=== PATIENT | female | born 1960 | race Caucasian/White ===

== ENCOUNTER → 2018-03-22 | Outpatient (CLI) | payer BC | LOC: MAMMO 08:25 | DX: Z12.39 Encounter for other screening for malignant neoplasm of breast (principal) ==

== ENCOUNTER → 2018-03-30 | Outpatient (CLI) | payer BC | LOC: LAB 01:00 | DX: N89.8 Other specified noninflammatory disorders of vagina (principal); J45.20 Mild intermittent asthma, uncomplicated; E61.1 Iron deficiency; K90.89 Other intestinal malabsorption; J30.1 Allergic rhinitis due to pollen ==

== ENCOUNTER → 2019-04-17 | Outpatient (CLI) | payer BC ==
[2019-04-17 09:11] LABS: EOS # 0.3 (0.04-0.40); EOS % 7.1 % (1.0-5.0); HEMOGLOBIN 10.5 g/dL (12.5-16.0); LYMPH# 1.2 (1.50-4.00); MEAN CELL VOLUME 72 fl (78-100); MEAN PLATELET VOLUME 9.3 fl (7.4-10.4); MONO # 0.4 (0.20-0.80); NEU # 1.7 (1.40-6.50); PLATELET COUNT 309 K/mm3 (130-400); RED BLOOD COUNT 5.17 M/mm3 (4.10-5.30); RED CELL DISTRIBUTION WIDTH 16.6 % (11.5-14.5); WHITE BLOOD COUNT 3.5 K/mm3 (4.8-10.8)
[2019-04-17 09:13] LABS: MEAN CORPUSCULAR HEMOGLOBIN 20 pg (27-31); MEAN CORPUSCULAR HGB CONC 28 g/dL (33-37)
[2019-04-17 09:20] LABS: ALBUMIN 4.1 g/dL (3.5-5.0); POTASSIUM 4.1 mmol/L (3.5-5.1)
[2019-04-17 09:22] LABS: CALCIUM 9.1 mg/dL (8.3-10.5)
[2019-04-17 09:23] LABS: TOTAL PROTEIN 6.5 g/dL (6.4-8.3)
[2019-04-17 09:25] LABS: TOTAL BILIRUBIN 0.4 mg/dL (0.2-1.2)
[2019-04-17 10:16] LABS: ERYTHROCYTE SEDIMENTATION RATE 6 mm/hr (0-30)
== END ==
LOC: LAB 08:34
PROVIDERS: Internal Medicine
DX: Z00.00 Encounter for general adult medical examination without abnormal findings (principal); Z12.11 Encounter for screening for malignant neoplasm of colon

== ENCOUNTER → 2019-04-22 | Outpatient (CLI) | payer BC | LOC: LAB 14:04 | DX: Z00.00 Encounter for general adult medical examination without abnormal findings (principal); Z12.11 Encounter for screening for malignant neoplasm of colon ==

== ENCOUNTER → 2019-08-13 | Outpatient (CLI) | payer BC ==
[2019-08-13 12:12] LABS: EOS # 0.2 (0.04-0.40); EOS % 3.6 % (1.0-5.0); HEMATOCRIT 41.4 % (37.0-47.0); HEMOGLOBIN 12.1 g/dL (12.5-16.0); LYMPH# 1.3 (1.50-4.00); MEAN CELL VOLUME 73 fl (78-100); MEAN PLATELET VOLUME 9.4 fl (7.4-10.4); MONO # 0.5 (0.20-0.80); NEU # 2.8 (1.40-6.50); PLATELET COUNT 337 K/mm3 (130-400); RED BLOOD COUNT 5.68 M/mm3 (4.10-5.30); WHITE BLOOD COUNT 4.8 K/mm3 (4.8-10.8)
[2019-08-13 12:13] LABS: MEAN CORPUSCULAR HEMOGLOBIN 21 pg (27-31); MEAN CORPUSCULAR HGB CONC 29 g/dL (33-37)
[2019-08-13 12:23] LABS: ALBUMIN 4.2 g/dL (3.5-5.0); POTASSIUM 4.1 mmol/L (3.5-5.1)
[2019-08-13 12:24] LABS: CALCIUM 8.8 mg/dL (8.3-10.5)
[2019-08-13 12:26] LABS: TOTAL PROTEIN 7.5 g/dL (6.4-8.3)
[2019-08-13 12:28] LABS: TOTAL BILIRUBIN 0.4 mg/dL (0.2-1.2)
[2019-08-13 13:09] LABS: ERYTHROCYTE SEDIMENTATION RATE 4 mm/hr (0-30)
== END ==
LOC: LAB 11:51
PROVIDERS: Internal Medicine
DX: Z00.00 Encounter for general adult medical examination without abnormal findings (principal); E61.1 Iron deficiency; K90.9 Intestinal malabsorption, unspecified; M85.80 Other specified disorders of bone density and structure, unspecified site

== ENCOUNTER → 2019-08-22 | Outpatient (CLI) | payer BC | LOC: MAMMO 08:22 | DX: Z12.31 Encounter for screening mammogram for malignant neoplasm of breast (principal); Z00.00 Encounter for general adult medical examination without abnormal findings; M85.80 Other specified disorders of bone density and structure, unspecified site ==

== ENCOUNTER → 2019-10-31 | Day surgery (SDC) | payer BC | LOC: MSO 07:19 | DX: Z12.11 Encounter for screening for malignant neoplasm of colon (principal); D12.8 Benign neoplasm of rectum; I10 Essential (primary) hypertension; D50.9 Iron deficiency anemia, unspecified; J45.909 Unspecified asthma, uncomplicated; Z86.010 Personal history of colon polyps; Z90.710 Acquired absence of both cervix and uterus; Z79.82 Long term (current) use of aspirin | CPT/HCPCS: 00811; J2704; J7120 ==

== ENCOUNTER → 2020-09-03 | Outpatient (CLI) | payer BC ==
[2020-09-03 09:23] LABS: BASO # 0.03 (0.02-0.10); EOS # 0.16 (0.04-0.40); EOS % 4.6 % (1.0-5.0); HEMATOCRIT 48.5 % (37.0-47.0); HEMOGLOBIN 15.7 g/dL (12.5-16.0); LYMPH# 1.09 (1.50-4.00); MEAN CELL VOLUME 86 fl (78-100); MEAN CORPUSCULAR HEMOGLOBIN 28 pg (27-31); MEAN CORPUSCULAR HGB CONC 32 g/dL (33-37); MEAN PLATELET VOLUME 9.3 fl (7.4-10.4); MONO # 0.35 (0.20-0.80); NEU # 1.85 (1.40-6.50); PLATELET COUNT 248 K/mm3 (130-400); RED BLOOD COUNT 5.67 M/mm3 (4.10-5.30); RED CELL DISTRIBUTION WIDTH 13.2 % (11.5-14.5); WHITE BLOOD COUNT 3.5 K/mm3 (4.8-10.8)
[2020-09-03 09:24] LABS: ALBUMIN 4.1 g/dL (3.4-4.8); POTASSIUM 3.8 mmol/L (3.5-5.1)
[2020-09-03 09:26] LABS: CALCIUM 9.2 mg/dL (8.3-10.5)
[2020-09-03 09:27] LABS: TOTAL PROTEIN 7.3 g/dL (6.2-8.1)
[2020-09-03 09:29] LABS: TOTAL BILIRUBIN 0.7 mg/dL (0.2-1.2)
[2020-09-03 11:10] LABS: ERYTHROCYTE SEDIMENTATION RATE 0 mm/hr (0-30)
== END ==
LOC: LAB 08:48
PROVIDERS: Internal Medicine
DX: Z00.00 Encounter for general adult medical examination without abnormal findings (principal); Z12.11 Encounter for screening for malignant neoplasm of colon

== ENCOUNTER → 2020-09-29 | Outpatient (CLI) | payer BC | LOC: MAMMO 08:30 | DX: Z12.31 Encounter for screening mammogram for malignant neoplasm of breast (principal) ==

== ENCOUNTER → 2021-09-27 | Outpatient (CLI) | payer BC ==
[2021-09-27 07:05] LABS: BASO # 0.02 K/mm3 (0.02-0.10); EOS # 0.22 K/mm3 (0.04-0.40); EOS % 5.9 % (1.0-5.0); HEMATOCRIT 42.5 % (37.0-47.0); HEMOGLOBIN 13.8 g/dL (12.5-16.0); LYMPH# 1.29 K/mm3 (1.50-4.00); MEAN CELL VOLUME 86 fl (78-100); MEAN CORPUSCULAR HEMOGLOBIN 28 pg (27-31); MEAN CORPUSCULAR HGB CONC 33 g/dL (33-37); MEAN PLATELET VOLUME 8.7 fl (7.4-10.4); MONO # 0.35 K/mm3 (0.20-0.80); NEU # 1.84 K/mm3 (1.40-6.50); PLATELET COUNT 284 K/mm3 (130-400); RED BLOOD COUNT 4.93 M/mm3 (4.10-5.30); WHITE BLOOD COUNT 3.7 K/mm3 (4.8-10.8)
[2021-09-27 07:10] LABS: ALBUMIN 3.8 g/dL (3.4-4.8); POTASSIUM 3.8 mmol/L (3.5-5.1)
[2021-09-27 07:11] LABS: CALCIUM 8.9 mg/dL (8.3-10.5)
[2021-09-27 07:12] LABS: TOTAL PROTEIN 6.4 g/dL (6.2-8.1)
[2021-09-27 07:14] LABS: TOTAL BILIRUBIN 0.5 mg/dL (0.2-1.2)
== END ==
LOC: LAB 06:38
PROVIDERS: Internal Medicine
DX: Z00.00 Encounter for general adult medical examination without abnormal findings (principal); Z12.11 Encounter for screening for malignant neoplasm of colon

== ENCOUNTER → 2021-10-04 | Outpatient (CLI) | payer BC | LOC: LAB 06:46 | DX: Z00.00 Encounter for general adult medical examination without abnormal findings (principal); Z12.11 Encounter for screening for malignant neoplasm of colon ==

== ENCOUNTER → 2021-10-14 | Outpatient (CLI) | payer BC | LOC: MAMMO 09:15 | DX: Z12.31 Encounter for screening mammogram for malignant neoplasm of breast (principal) ==

== ENCOUNTER → 2022-10-11 | Outpatient (CLI) | payer BC | LOC: LAB 07:25 | DX: Z00.00 Encounter for general adult medical examination without abnormal findings (principal); Z12.11 Encounter for screening for malignant neoplasm of colon; J45.909 Unspecified asthma, uncomplicated; K90.9 Intestinal malabsorption, unspecified; E61.1 Iron deficiency; E55.9 Vitamin D deficiency, unspecified; E03.9 Hypothyroidism, unspecified; E78.2 Mixed hyperlipidemia; M85.80 Other specified disorders of bone density and structure, unspecified site ==

== ENCOUNTER → 2023-10-02 | Outpatient (CLI) | payer MEDICARE, BC ==
[2023-10-02 07:21] LABS: BASO # 0.02 K/mm3 (0.02-0.10); EOS # 0.16 K/mm3 (0.04-0.40); EOS % 4.8 % (1.0-5.0); HEMATOCRIT 40.9 % (37.0-47.0); HEMOGLOBIN 12.7 g/dL (12.5-16.0); LYMPH# 1.34 K/mm3 (1.50-4.00); MEAN CELL VOLUME 80 fl (78-100); MEAN CORPUSCULAR HEMOGLOBIN 25 pg (27-31); MEAN CORPUSCULAR HGB CONC 31 g/dL (33-37); MEAN PLATELET VOLUME 8.8 fl (7.4-10.4); MONO # 0.31 K/mm3 (0.20-0.80); NEU # 1.51 K/mm3 (1.40-6.50); PLATELET COUNT 300 K/mm3 (130-400); RED BLOOD COUNT 5.12 M/mm3 (4.10-5.30); RED CELL DISTRIBUTION WIDTH 13.8 % (11.5-14.5); WHITE BLOOD COUNT 3.3 K/mm3 (4.8-10.8)
[2023-10-02 07:31] LABS: ALBUMIN 4.3 g/dL (3.4-4.8)
[2023-10-02 07:32] LABS: CALCIUM 9.6 mg/dL (8.3-10.5)
[2023-10-02 07:35] LABS: TOTAL BILIRUBIN 0.6 mg/dL (0.2-1.2)
[2023-10-02 07:40] LABS: MAGNESIUM 2.07 mg/dL (1.60-2.60)
== END ==
LOC: LAB 07:02
PROVIDERS: Internal Medicine
DX: Z12.11 Encounter for screening for malignant neoplasm of colon (principal); E03.9 Hypothyroidism, unspecified; J45.909 Unspecified asthma, uncomplicated; K90.9 Intestinal malabsorption, unspecified; E78.2 Mixed hyperlipidemia; R73.9 Hyperglycemia, unspecified; R20.2 Paresthesia of skin

== ENCOUNTER → 2023-10-13 | Outpatient (CLI) | payer MEDICARE, BC | LOC: RAD 07:07 | DX: Z12.39 Encounter for other screening for malignant neoplasm of breast (principal); E04.2 Nontoxic multinodular goiter; M85.80 Other specified disorders of bone density and structure, unspecified site ==

== ENCOUNTER → 2023-11-06 | Outpatient (CLI) | payer MEDICARE, BC | LOC: MAMMO 07:52 | DX: Z12.31 Encounter for screening mammogram for malignant neoplasm of breast (principal) ==

== ENCOUNTER → 2024-02-27 | Outpatient (CLI) | payer MEDICARE, BC | LOC: MAMMO 10:26 | DX: Z13.820 Encounter for screening for osteoporosis (principal); Z12.31 Encounter for screening mammogram for malignant neoplasm of breast; M85.88 Other specified disorders of bone density and structure, other site; E04.2 Nontoxic multinodular goiter ==

== ENCOUNTER → 2024-04-01 | Outpatient (CLI) | payer MEDICARE, BC | LOC: LAB 06:43 | DX: M85.80 Other specified disorders of bone density and structure, unspecified site (principal) ==